=== PATIENT | female | born 1960 | race Caucasian/White ===

== ENCOUNTER 2023-04-26 08:13 | Emergency (ER) | payer BC ==
--- NOTE | 2023-04-26 08:34 | ED Physician Documentation ---
PD HPI ABD PAIN - Stated complaint Stated Complaint: ABD BLOATING - Chief complaint Chief Complaint: Abd Pain - History obtained from History obtained from: Patient - History of Present Illness Timing - onset: Last night Timing - duration: Hours Timing - details: Abrupt onset, Still present Quality: Cramping, Aching, Fullness/distended Location: All over / everywhere, Periumbilical Radiation: Lower back Associated symptoms: Nausea, Vomiting (couple of times.), Loss of appetite, Other (had cabbage for dinner and though initially was just gassy from that.). No: Fever, Diarrhea, Constipation Similar symptoms before: Has not had sx before Recently seen: Not recently seen Review of Systems Constitutional: denies: Fever, Chills Nose: denies: Rhinorrhea / runny nose, Congestion Throat: denies: Sore throat Respiratory: denies: Cough PD PAST MEDICAL HISTORY - Past Medical History Past Medical History: Yes Cardiovascular: Hypertension Respiratory: None Neuro: None Endocrine/Autoimmune: None GI: None PRESCHOOL AIDE: None : None HEENT: None Psych: None Musculoskeletal: None Derm: None - Past Surgical History Past Surgical History: Yes Ortho: Other HEENT: Tonsil/Adenoidectomy - Present Medications Home Medications: Ambulatory Orders Medication Instructions Recorded Confirmed HYDROcod/ACETAM 5/325 [[place] 5/325] 1 ea PO Q6H PRN #14 tablet 04/26/23 Irbesartan 75 mg PO DAILY 04/26/23 04/26/23 Meloxicam [Mobic] 7.5 mg PO BID 10 Days #20 tablet 04/26/23 Ondansetron Odt [Zofran] 4 mg TL Q6H PRN #10 tablet 04/26/23 Progesterone, Micronized 100 mg PO HS 04/26/23 04/26/23 [Prometrium] estradioL [Estrace] 1 mg PO HS 04/26/23 04/26/23 - Allergies Allergies/Adverse Reactions: Allergies Allergy/AdvReac Type Severity Reaction Status Date / Time No Known Drug Allergies Allergy Verified 04/26/23 08:29 - Living Situation Living Situation: reports: With spouse/s.o. Living Arrangement: reports: At home - Social History Does the pt smoke?: No Smoking Status: Never smoker Does the pt drink ETOH?: No ETOH Use: Other (very occasional alcohol once a month or so; last drink was a glass a week or so ago.) Does the pt have substance abuse?: No - Immunizations Immunizations: TDAP >10years/unknown PD ED PE NORMAL - Vitals Vital signs reviewed: Yes - General General: Alert and oriented X 3, Well developed/nourished - Neck Neck: Supple, no meningeal sign, No adenopathy - Cardiac Cardiac: RRR, No murmur - Respiratory Respiratory: Clear bilaterally - Abdomen Abdomen: Soft, Non distended, No organomegaly, Other (tender mid abdomen without guarding nor percussion tender. Tender epigastric/mid upper abd. Not tender RUQ per se. Not tender RLQ directly. ). No: Normal bowel sounds (diminished) Results - Vitals Vitals: Oxygen O2 Source Room air - Labs Labs: Laboratory Tests 04/26/23 04/26/23 04/26/23 08:24 08:24 09:45 WBC 10.0 RBC 4.16 L Hgb 13.0 Hct 39.5 MCV 95.0 MCH 31.3 H MCHC 32.9 RDW 11.8 L Plt Count 321 MPV 9.8 Neut # (Auto) 7.5 H Lymph # (Auto) 1.7 [place] # (Auto) 0.7 Eos # (Auto) 0.1 Baso # (Auto) 0.1 Absolute Nucleated RBC 0.00 Nucleated RBC % 0.0 Sodium 137 Potassium 3.7 Chloride 103 Carbon Dioxide 29 Anion Gap 5.0 L BUN 12 Creatinine 0.6 Estimated GFR (MDRD) 102 Glucose 96 Calcium 9.8 Total Bilirubin 0.5 AST 19 ALT 21 Alkaline Phosphatase 61 Total Protein 7.2 Albumin 4.4 Globulin 2.8 Albumin/Globulin Ratio 1.6 Lipase 1109 H Urine Color LIGHT YELLOW Urine Clarity CLEAR Urine pH 7.0 Ur Specific [place] <=1.005 Urine Protein NEGATIVE Urine Glucose (UA) NEGATIVE Urine Ketones NEGATIVE Urine Occult Blood NEGATIVE Urine Nitrite NEGATIVE Urine Bilirubin NEGATIVE Urine Urobilinogen 0.2 (NORMAL) Ur Leukocyte Esterase NEGATIVE Ur Microscopic Review NOT INDICATED Urine Culture Comments NOT INDICATED - Rads (name of study) abd/pelvic CT Relevant Findings:: Prelim report reviewed (pacntreatic head inflammation, mild, without mass, fluid. GB distended midly without fluid nor wall thickening. recommends US.), EMP independent interpretation of test RUQ US Relevant Findings:: Prelim report reviewed (normal GB. nor common bile duct. Pancreas not well visualized (seen better on recent CT). ), EMP independent interpretation of test PD Medical Decision Making - ED course Complexity details: reviewed results, re-evaluated patient (improved pain and tenderness with IV fluids and meds. Able to take PO fluids. ), considered differential, d/w patient Reviewed Lab Results: elevated lipase. Her feeling of distension presume some element of ileus, but no obstructive pattern on CT. Mild pancreatic inflammation without mass. Distended GB without thickening nor fluid. recommended US. US done and showed normal GB and CBD. pancreas not seen well but was seen on CT. Pt not alcohol drinker (last was a glass or so a week ago), does not sugey biliary in origin, not on meds to cause it (BP med can associate with liver inflamation but not pancreatic per [employer]). Not clear the cause. Unlkely food related as she had thought the distension was gassiness from cabbage for dinner. Discussed with pt and spouse that unclear cause to it. Presume thus that it can go easily if for example viral related or so. No apparent tumors/masses on CT. She is able to take PO without vomiting. Pain improved here with meds. Can try outpt with followup and repeat exam and labs in few days. Drug Therapy Requiring Monitoring for Toxicity: Toradol and dilaudid IV given with fluids with improved symptoms but no ill effects. Departure - Departure Disposition: 01 Home, Self Care Clinical Impression: Abdominal pain, Pancreatitis Condition: Stable Record reviewed to determine appropriate education?: Yes Instructions: ED Pancreatitis Follow-Up: [facility] [place] [Provider Group] Prescriptions: Meloxicam [Mobic] 7.5 mg PO BID 10 Days #20 tablet HYDROcod/ACETAM 5/325 [[place] 5/325] 1 ea PO Q6H PRN #14 tablet PRN Reason: Pain Ondansetron Odt [Zofran] 4 mg TL Q6H PRN #10 tablet PRN Reason: Nausea / Vomiting Comments: Your CT scan and blood tests were consistent with some inflammation of the pancreas called pancreatitis. It is unclear the cause of this for you as the most common reasons for this do not seem to be applicable for you. The medications you take are not associated with inflammation of the pancreas. There is no signs of gallbladder or common bile duct process on the CT nor ultrasound. Clear liquid diet today. [place] food in particular without fat or protein over the next couple of days. Refer to the information sheet about pancreatitis. Anti-inflammatory such as naproxen or meloxicam twice daily with food. Add Tylenol 500 to 650 mg every 4-6 hours for the next several days to week as well. Ondansetron if needed for nausea. Add hydrocodone every 6 hours if needed for worse pain. This would be intended short-term as I would anticipate improvement over the next 2 to 3 days. I would anticipate improvement over the next few days and resolved by 3 to 5 days assuming a transient cause for the inflammation. Recheck if persistent symptoms beyond a few days and return if worse. It would be good to have your blood test rechecked in 4 to 5 days to ensure they are improved assuming you are clinically improved as well. This might be easiest done at the walk-in clinic or such. I sent prescriptions to the [facility] pharmacy in [place]. I am prescribing a short course of narcotic pain medication for you. These are potentially dangerous and addictive medications that should be used carefully. These medications may constipate you. Take an [id number] stool softener such as docusate twice daily with plenty of water while taking these medications. If you go 24 hours without a bowel movement, take fkvr-yce-pmrkest MiraLAX, per package instructions. Do not drink or drive while taking these medications. If you received narcotic or sedating medications while in the emergency department do not drive for 24 hours. Store this medication in a safe, secure place and out of reach of children. It is a violation of federal law to give or sell this medication to another person or to use in a manner other than prescribed. The ED will not refill narcotic prescriptions, including prescriptions lost or stolen. You can dispose of unwanted medications at the [facility]'s office or at several pharmacies such as [facility]. Forms: PCP List Discharge Date/Time: 04/26/23 13:56
[2023-04-26 08:41] LABS: BASOPHILS # (AUTO) 0.1 10^3/uL (0.0-0.1); BASOPHILS % (AUTO) 0.8 %; EOSINOPHILS # (AUTO) 0.1 10^3/uL (0.0-0.7); HCT - HEMATOCRIT 39.5 % (37.0-47.0); LYMPHOCYTES # (AUTO) 1.7 10^3/uL (1.5-3.5); LYMPHOCYTES % (AUTO) 16.8 %; MEAN CORPUSCULAR HEMOGLOBIN 31.3 pg (27.0-31.0); MEAN CORPUSCULAR HGB CONC 32.9 g/dL (32.0-36.0); MEAN PLATELET VOLUME 9.8 fL (7.9-10.8); MONOCYTES # (AUTO) 0.7 10^3/uL (0.0-1.0); MONOCYTES % (AUTO) 6.5 %; NEUTROPHILS # (AUTO) 7.5 10^3/uL (1.5-6.6); NEUTROPHILS % (AUTO) 74.7 %; PLT - PLATELET COUNT 321 10^3/uL (130-450); RED BLOOD COUNT 4.16 10^6/uL (4.20-5.40); RED CELL DISTRIBUTION WIDTH 11.8 % (12.0-15.0)
[2023-04-26 08:49] LABS: ALBUMIN 4.4 g/dL (3.2-5.5); ALBUMIN/GLOBULIN RATIO 1.6 (1.0-2.2); BILIRUBIN,TOTAL 0.5 mg/dL (0.2-1.0); CALCIUM 9.8 mg/dL (8.5-10.3); CREATININE 0.6 mg/dL (0.6-1.3); POTASSIUM 3.7 mmol/L (3.5-4.5); TOTAL PROTEIN 7.2 g/dL (6.4-8.9)
[2023-04-26] MEDS: SODIUM CHLORIDE 0.9% 1,000 ML IV STA (09:12)
[2023-04-26] MEDS: KETOROLAC 15 MG/ML VIAL IVP STA (09:12)
[2023-04-26] MEDS: MAG HYDROX/AL HYDROX/SIMETH 30 ML UDC PO STA (09:17)
[2023-04-26 10:02] LABS: BILIRUBIN,URINE NEGATIVE (NEGATIVE); GLUCOSE, URINE (UA) NEGATIVE (NEGATIVE); KETONES,URINE (UA) NEGATIVE (NEGATIVE); LEUKOCYTE ESTERASE, URINE NEGATIVE (NEGATIVE); NITRITE,URINE NEGATIVE (NEGATIVE); OCCULT BLOOD,URINE NEGATIVE (NEGATIVE); PROTEIN,URINE NEGATIVE (NEGATIVE); UROBILINOGEN,URINE 0.2 (NORMAL) E.U./dL (NORMAL)
[2023-04-26 10:04] LABS: CLARITY,URINE CLEAR (CLEAR)
[2023-04-26] MEDS ORDERED: iohexoL-300 100 ML VIAL ONE (10:20)
--- NOTE | 2023-04-26 11:43 | CT Report ---
PROCEDURE: Abdomen/Pelvis W INDICATIONS: abd distension and pain onset last evening CONTRAST: Omni 300 100ml TECHNIQUE: After the administration of intravenous contrast, a CT scan of the abdomen and pelvis was performed. Images were recorded and evaluated at appropriate window settings. Reformats: coronal and sagittal. F or radiation dose reduction, the following was used: automated exposure control, adjustment of mA and /or kV according to patient size. COMPARISON: None. FINDINGS: Image quality: Diagnostic. Lower chest: Unremarkable. Liver: No solid mass. Gallbladder and biliary tree: Mildly, but not abnormally distended gallbladder. No calcified stones. No gallbladder wall thickening. Spleen: No splenomegaly. Pancreas: Ill-defined prominence of the head and uncinate process of the pancreas, with somewhat hete rogeneous enhancement, and mild inflammatory change in the adjacent fat. Findings most likely represe nt acute pancreatitis. Adrenals: No adrenal nodule. Kidneys and ureters: No hydronephrosis. No renal cystic lesion which requires follow up. No solid mas s. Stomach, bowel and peritoneum: No bowel distension. No pathologic free fluid. Lymph nodes: No central or retroperitoneal adenopathy. Vessels: No infrarenal aortic aneurysm. PELVIS Reproductive organs: Unremarkable. Bladder: No abnormal wall thickening, accounting for underdistention. Pelvic lymph nodes: No pelvic adenopathy by size criteria. Bones: No aggressive osseous abnormality. Other: No significant ventral or inguinal hernia. IMPRESSION: 1. Findings most likely represent uncomplicated pancreatitis. Recommend clinical correlation and valorie elation with laboratory values. Comments: Consider right upper quadrant ultrasound to evaluate for the presence or absence of gallsto brody. Consider nonemergent pancreas protocol MRI with and without contrast after symptoms resolve to exclude an underlying pancreatic lesion. Reviewed by: Leo Mayers MD on 04/26/2023 11:42 AM [facility] Approved by: Leo Mayers MD on 04/26/2023 11:42 AM PST Station ID: [id number]
[2023-04-26] MEDS: HYDROmorphone 1 MG/ML CARPUJECT IVP STA (12:21)
[2023-04-26] MEDS: iohexoL-300 100 ML VIAL IVP ONE (12:23)
--- NOTE | 2023-04-26 13:36 | Ultrasound Report ---
PROCEDURE: Abdomen Limited INDICATIONS: elevated lipase. CT pancreatitis, suggests US. TECHNIQUE: Real-time focused scanning was performed of the abdomen, with image documentation. COMPARISONS: Same day CT abdomen and pelvis. FINDINGS: Evaluation is limited secondary to overlying bowel gas. Liver: Liver is normal in size and homogeneous in echotexture. Gallbladder: Unremarkable. Biliary ducts: Intrahepatic bile ducts are non-dilated. Extrahepatic bile duct caliber measures 5 m m. Normal is 6-7 mm or less in diameter, or 10 mm or less post-cholecystectomy. Pancreas: The pancreas is not well seen. Findings are better characterized on same day CT abdomen an d pelvis dated Right kidney: Normal in size and echotexture. Right kidney measures 10.8 cm long. No hydronephrosis or nephrolithiasis. No solid masses. No complex renal cystic lesions which require follow-up. Aorta: Not well seen. IVC: Not well seen. IMPRESSION: The pancreas is not well seen secondary to overlying bowel gas. Findings of acute pancreatitis are be tter characterized on same day CT abdomen and pelvis. Reviewed by: Avelino Webb MD on 04/26/2023 1:35 PM PST Approved by: Avelino Webb MD on 04/26/2023 1:35 PM PST Station ID: [id number]
[2023-04-26 13:58] VITALS: BP 123/55; O2SAT 94
== END 2023-04-26 13:56 | disposition home or self-care (01) ==
LOC: ED 08:13
DX: K85.90 Acute pancreatitis without necrosis or infection, unspecified (principal); I10 Essential (primary) hypertension
CPT/HCPCS: 36415; 74177; 76705; 80053; 81003; 83690; 85025; 96374; 96375; 99284; A9270; J1170; Q9967; 81001; 87086

== ENCOUNTER 2023-04-30 14:30 | Outpatient (CLI) | payer BC ==
[2023-04-30 18:34] LABS: BASOPHILS # (AUTO) 0.1 10^3/uL (0.0-0.1); EOSINOPHILS # (AUTO) 0.1 10^3/uL (0.0-0.7); EOSINOPHILS % (AUTO) 2.3 %; HCT - HEMATOCRIT 37.3 % (37.0-47.0); HGB - HEMOGLOBIN 12.4 g/dL (12.0-16.0); LYMPHOCYTES # (AUTO) 1.5 10^3/uL (1.5-3.5); LYMPHOCYTES % (AUTO) 25.6 %; MEAN CORPUSCULAR HEMOGLOBIN 30.8 pg (27.0-31.0); MEAN CORPUSCULAR HGB CONC 33.2 g/dL (32.0-36.0); MEAN CORPUSCULAR VOLUME 92.8 fL (81.0-99.0); MONOCYTES # (AUTO) 0.4 10^3/uL (0.0-1.0); MONOCYTES % (AUTO) 6.4 %; NEUTROPHILS # (AUTO) 3.9 10^3/uL (1.5-6.6); NEUTROPHILS % (AUTO) 64.5 %; PLT - PLATELET COUNT 342 10^3/uL (130-450); RED BLOOD COUNT 4.02 10^6/uL (4.20-5.40); RED CELL DISTRIBUTION WIDTH 11.4 % (12.0-15.0)
[2023-04-30 19:26] LABS: ALBUMIN 4.4 g/dL (3.2-5.5); ALBUMIN/GLOBULIN RATIO 1.5 (1.0-2.2); BILIRUBIN,TOTAL 0.6 mg/dL (0.2-1.0); CALCIUM 9.7 mg/dL (8.5-10.3); CREATININE 0.6 mg/dL (0.6-1.3); POTASSIUM 4.1 mmol/L (3.5-4.5); TOTAL PROTEIN 7.3 g/dL (6.4-8.9)
== END 2023-04-30 14:45 | disposition home or self-care (01) ==
LOC: LAB.N 14:30
PROVIDERS: ATTEND Physician Assistant
DX: K85.90 Acute pancreatitis without necrosis or infection, unspecified (principal)
CPT/HCPCS: 36415; 80053; 83690; 85025

== ENCOUNTER 2023-07-25 09:02 | Outpatient (CLI) | payer BC ==
--- NOTE | 2023-07-25 09:43 | Sleep Patient Instructions ---
Sleep Center Visit Summary - Patient Visit Information Reason for Visit: Initial consult for evaluation of sleep disordered breathing and other sleep issues. - Patient Instructions Instructions Attached: Sleep Study, Sleep Study Home Monitor Additional Instructions: You will be completing a sleep study, either an in-lab polysomnography (PSG) or home sleep study (HST). You will follow-up in the sleep care office after the sleep study is completed to hear the results and talk about therapy, if needed. You will be called by our office staff to schedule this appointment, but you may contact us with any questions. - Clinic Information Contact: [facility] [address] [place] [id number] [email or web address] T: [phone]
--- NOTE | 2023-07-25 09:45 | SLEEP CARE CONSULTATION ---
Information from patient questionnaire entered by Keshawn Mtz. I have reviewed and concur with the information entered by Keshawn Mtz. This document represents the service I personally performed and the decisions made by me, Vidya Lutz ARNP. History of Present Illness Service Date and Time: 07/25/2023 09 Reason for Visit: New patient Chief Complaint: reports: Insomnia, Snoring, Excessive daytime sleepiness, Fatigue, Frequent awakenings at night Usual bedtime: [id number] Time it takes to fall asleep: PRETTY FAST Snores at night: Yes Observed to quit breathing while asleep: No Sleeps alone due to snoring: No Number of times waking at night: 2-3 Reasons for waking at night: reports: Bathroom, Other (NOISE) Toss, Turn, or Twitch while sleeping: Yes Recalls having dreams: Yes Usually gets out of bed at: 0530 Feels refreshed in the morning: Yes Morning headache: No Sleepy or fatigued during the day: Yes Ever fallen asleep while driving: No Takes day naps: Yes Dreams during day naps: No Prior sleep studies: No Additional HPI information: I had the pleasure of seeing PAUL FUNEZ today regarding the possibility of her having a sleep disorder. Her current complaints are excessive daytime sleepine ss, fatigue, frequent night awakenings, insomnia and snoring. She talked to her PCP about not sleeping well and was recommended to have a sleep study. Her uses a CPAP. She had a sleep study 10 years ago but it was negative for sleep disordered breathing. The patient tells me that she normally goes to bed around 9-9:30 pm, and it takes her approximately few minutes to fall asleep. She has been told that she snores loudly and irregularly at night. She has not been observed to stop breathing in her sleep. Her bed partner can still sleep in the same bed. She can recall waking up on the average of 2-3 times during the night. Most of the time she wakes up because of bathroom or noise. She has occasionally awakened for her own snoring. There is a lot of tossing and turning in her sl eep. Generally she can recall having dreams. She usually wakes up at 0530 and sometimes feels refreshed. She usually does not have a morning headache. During the day she usually does not feel sleepy and fatigued. She has never fallen asleep while driving nor has any accident due to sleepiness. She usually naps for less than 30 minutes during the day. If she naps, upon falling asleep during the day she denies having vivid dreams. She denies having impaired concentration during the day. There is no somniloquy (sleep talking) or somnambulism (sleep walking). - Parasomnia Symptoms Ever been unable to move upon waking from sleep: No Walks in sleep: No Talks in sleep: No Ever acted out dreams in sleep: No Ever felt weak in the knees when startled or emotional: No Bothered by creepy, crawly, restless sensations in legs: Yes Subjective Initial [place] Sleepiness Scale score: 6 (07/25/23) Past Medical History Past Medical History: reports: Hypertension Social History The patient's occupation is a RE. Patient is and lives in [place]. Have you smoked in the past 12 months: No Alcohol use: No Caffeine use: Yes Caffeine amount and frequency: 2 CUPS AM ONLY Family History Family history of sleep disordered breathing: No Allergies and Home Medications Known drug allergies: No Drug allergies reviewed: Yes Home medication list reviewed: Yes (as listed) Allergy and home medication list: Allergies No Known Drug Allergies Allergy (Verified 04/26/23 08:29) Home Medications Medication Instructions Recorded Confirmed Last Taken Type Irbesartan 75 mg PO DAILY 04/26/23 07/25/23 04/26/23 History Multivitamin See Rx Instructions .ROUTE .COMPLEX 07/25/23 07/25/23 Unknown History Review of Systems Cardiovascular: reports: high blood pressure Gastrointestinal: denies: heartburn Urinary: reports: incontinence Psychiatric: denies: anxiety, depression Ear/Nose/Throat: reports: tonsillectomy, wisdom teeth removed Endocrine: reports: sluggishness Physical Exam Vital signs obtained and entered by: KESHAWN Kearns MA Blood Pressure: 137/89 (RIGHT ARM) Cuff size: regular Heart Rate: 62 O2 Saturation: 95 Height: 5 ft 4 in Weight: 167 lb 6.4 oz Body Mass Index: 28.7 BMI Classification: Overweight Neck circumference: 13.5 Nostrils: patent to airflow Mouth and throat: narrow oropharynx Soft palate: long Hard palate: normal Uvula: normal Uvula visualization: 25% Mallampati Class III Tongue: enlarged in size with teeth aldrich on lateral edges Tonsils: absent bilaterally Neck: normal w/o lymphadenopathy or thyromegaly Heart: regular rate and rhythm Lungs: clear bilaterally Impression and Plan 1. Suspected Obstructive Sleep Apnea-Hypopnea Syndrome, as suggested by a history of irregular snoring and frequent awakening during the night. Narrow oropharynx and obesity are common predisposing factors for obstructive sleep apnea-hypopnea syndrome. I recommend proceeding to polysomnography to confirm the diagnosis and to assess severity. If the patient has significant sleep disordered breathing, a manual CPAP titration study will also be performed to find the optimal treatment pressure. I informed the patient of what the sleep studies involve and after some discussion, obtained agreement to proceed. The pathophysiology of obstructive sleep apnea-hypopnea syndrome was discussed with the patient and health risks of cardiovascular and cerebrovascular disease if not treated. Risks of drowsy driving discussed in detail and patient advised to avoid long distance driving and to extract puller at the first sign of drowsiness. Patient agreed to plan. * Schedule polysomnography * Avoid long distance driving or driving when feeling sleepy. * Avoid alcohol, sedative and muscle relaxant around bedtime. * Attempt to lose weight. * Review instructions provided by trained office staff on how to prepare for the sleep study. * Return for follow-up after sleep study completed. Counseling Topics: Weight loss health impact Plan: PSG/HST and follow up Visit Type: In Office Time Spent with Patient (minutes): 30 Provider Statement: I spent 100% of the Face to Face Visit with the patient with greater than 50% spent counseling the patient and coordination of care.
[2023-07-25 09:46] VITALS: BP 137/89; O2SAT 95
== END 2023-07-25 09:03 | disposition home or self-care (01) ==
LOC: SC 09:02
PROVIDERS: ATTEND Nurse Practitioner Family
DX: R06.83 Snoring (principal); G47.9 Sleep disorder, unspecified; G47.10 Hypersomnia, unspecified
CPT/HCPCS: 99203; 99212

== ENCOUNTER 2023-09-21 08:50 | Outpatient (CLI) | payer BC | END 2023-09-21 08:51 | disposition home or self-care (01) | LOC: SC 08:50 | PROVIDERS: ATTEND Nurse Practitioner Family | DX: G47.8 Other sleep disorders (principal); R53.83 Other fatigue; E66.3 Overweight; R06.83 Snoring; I10 Essential (primary) hypertension | CPT/HCPCS: 95806 ==

== ENCOUNTER 2023-10-04 13:09 | Outpatient (CLI) | payer BC ==
--- NOTE | 2023-10-04 13:57 | Sleep Patient Instructions ---
Sleep Center Visit Summary - Patient Visit Information Reason for Visit: Sleep study follow up - Patient Instructions Additional Instructions: Your sleep study today was negative for significant sleep disordered breathing. You were found to have episodes of snoring. There are different ways to control snoring including weight loss, oral devices made by a dentist or surgical options through ENT specialist. You should not use oral devices that do not fit properly because they can affect your bite. You should also check insurance coverage of oral devices for snoring because they may not be cover well. You may obtain a referral to an ENT specialist through your primary provider. Follow-up as needed. - Clinic Information Contact: [facility] [address] [place] [email or web address] T: [phone]
--- NOTE | 2023-10-04 13:59 | SLEEP CARE CONSULTATION ---
Information from patient questionnaire entered by Lucinda Mtz. I have reviewed and concur with the information entered by Lucinda Mtz. This document represents the service I personally performed and the decisions made by , Vidya Lutz ARNP. History of Present Illness Service Date and Time: 10/04/2023 1309 Initial [place] Sleepiness Scale score: 6 (07/25/23) Current [place] Sleepiness Scale score: 6 (10/04/23) Additional HPI information: PAUL FUNEZ returns for follow up and results of the recently performed home sleep study done on 09/21/2023. The patient was informed of the following findings: No significant sleep disorde red breathing with an average AHI of 3.4 and pepe oxygen saturation of 89%. I explained the pathophysiology behind obstructive sleep apnea. Patient does not have sleep apnea and was advised how weight gain could increase the risk of developing sleep apnea in the future. I strongly encouraged the patient to lose weight. Patient has mild snoring. Snoring can be reduced by weight loss. Weight loss is best achieved with diet consult. Patient instructed to contact PCP for referral. Snoring can also be treated with an oral appliance from a dentist. Advised to check insurance coverage. In addition, an ENT evaluation can be do to see if other treatment is indicated. Patient does not drink alcohol. Patient was cautioned about risks of drowsy driving until sleepiness symptoms resolve. Patient denies drowsy driving. Sleep Study - Results Type of Sleep Study: Home sleep study (COMPLETED 09/21/23) Prior sleep studies: No Polysomnography/Home Sleep Study results: Physician Impression: The quality of the study is fair due to partial loss of airflow signal. The length of the study is adequate (> 240 minutes). Please also see the tabulated and graphic data. 1. No significant sleep disordered breathing, with an AHI of 3.4/hr and pepe SaO2 of 89%. During the study, the patient had 4 apneas (4 obstructive, 0 central, 0 mixed) and 4 hypopneas. The longest episode lasted 67.5 seconds. The patient did not sleep supine during this study (supine AHI was 0.0 and non-supine, 3.35). Allergies and Home Medications Known drug allergies: No Drug allergies reviewed: Yes Home medication list reviewed: Yes (no changes) Allergy and home medication list: Allergies No Known Drug Allergies Allergy (Verified 10/04/23 13:12) Review of Systems Review of systems same as previous: Yes (NO CHANGE) Physical Exam Vital signs obtained and entered by: LUCINDA Kearns MA Blood Pressure: 132/65 (LEFT ARM) Cuff size: regular Heart Rate: 70 O2 Saturation: 97 Height: 5 ft 4 in Weight: 165 lb 12.8 oz Body Mass Index: 28.4 BMI Classification: Overweight Impression and Plan 1. Snoring but no significant sleep disordered breathing. Patient advised that often weight loss will reduce snoring as well as apnea risk. An oral appliance can also be used for snoring. This would require a dental consultation. Patient cautioned not to use other online appliances as can cause bite issues. Patient is advised to check if insurance will cover. An ENT consult can also be helpful to determine if any other treatment is an option. 2. Overweight, unspecified. Currently patients BMI is 28.4. Obesity increases the risk of apnea, CPAP pressure requirements and overall health risks especially cardiovascular and diabetes. Thus patient is advised to lose weight. * Attempt to lose weight * Return as needed for follow up. Counseling Topics: Weight loss health impact Follow up with Sleep Care in: as needed Visit Type: In Office Time Spent with Patient (minutes): 15 Provider Statement: I spent 100% of the Face to Face Visit with the patient with greater than 50% spent counseling the patient and coordination of care.
[2023-10-04 14:10] VITALS: BP 132/65; O2SAT 97
== END 2023-10-04 13:10 | disposition home or self-care (01) ==
LOC: SC 13:09
PROVIDERS: ATTEND Nurse Practitioner Family
DX: R06.83 Snoring (principal); E66.3 Overweight; Z68.28 Body mass index [BMI] 28.0-28.9, adult
CPT/HCPCS: 99212